=== PATIENT | female | born 1945 | race Caucasian/White ===

== ENCOUNTER 2021-11-03 14:36 | Emergency (ER) | payer MEDICARE ==
[~2021-11-03] VITALS: Ht 154.9 cm; Wt 59.0 kg
[2021-11-03] MEDS ORDERED: 0.9%NACL 1000ML 1,000 ML IV SCH (16:30)
[2021-11-03] MEDS ORDERED: [UNRECOGNIZED DRUG - OTHER] IV ONE (16:30)
[2021-11-03 16:42] LABS: BASOPHILS % (AUTO) 0.5 % (0.0-5.0); EOSINOPHILS % (AUTO) 0.8 % (0.0-8.0); HEMATOCRIT 37.1 % (36-48); LYMPHOCYTES % (AUTO) 31.8 % (21.0-51.0); MEAN CORPUSCULAR HEMOGLOBIN 31.9 pg (27.0-33.0); MEAN CORPUSCULAR HGB CONC 32.6 g/dL (32.0-36.0); MEAN CORPUSCULAR VOLUME 97.9 fL (79-99); MONOCYTES % (AUTO) 12.4 % (3.0-13.0); NEUTROPHILS % (AUTO) 54.2 % (40.0-77.0); PLATELET COUNT (AUTO) 314 K/uL (130-400); RED BLOOD CELL COUNT(AUTO) 3.79 MIL/uL (4.00-5.50); RED CELL DISTRIBUTION WIDTH 12.2 % (11.0-15.5); WHITE BLOOD COUNT (AUTO) 7.4 K/uL (4.8-10.8)
[2021-11-03 16:52] LABS: CARBON DIOXIDE 30 mmol/L (21-32); CHLORIDE 97 mmol/L (101-111); CREATININE 0.8 mg/dL (0.5-1.5); GLOMERULAR FILTR. RATE CALC 74 mL/min (>60); GLUCOSE,RANDOM 92 mg/dL (70-105); POTASSIUM 3.4 mmol/L (3.5-5.1); SODIUM SERUM 134 mmol/L (136-145); UREA NITROGEN, BLOOD 18 mg/dL (7-18)
[2021-11-03 16:57] LABS: ALANINE AMINOTRANSFERASE 19 U/L (12-78); ALBUMIN 3.8 g/dL (3.5-5.0); ASPARTATE AMINOTRANSFERASE 23 U/L (10-37); BILIRUBIN,TOTAL 0.3 mg/dL (0.2-1.0); TOTAL PROTEIN, SERUM 7.9 g/dL (6.0-8.3)
[2021-11-03 17:00] LABS: CRP QUANTITATIVE < 2.00 mg/L (0.00-9.0)
[2021-11-03] MEDS ORDERED: ACETAMINOPHEN 500 MG TABLET PO ONE (17:00)
[2021-11-03] MEDS ORDERED: KETOROLAC 30MG VIAL (30MG/ML) IV ONE (17:00)
[2021-11-03 17:43] LABS: APPEARANCE,URINE Clear (CLEAR); BILIRUBIN,URINE Negative (NEGATIVE); COLOR,URINE Yellow (YELLOW); GLUCOSE, URINE (UA) Negative (NEGATIVE); KETONES,URINE Negative (NEGATIVE); LEUKOCYTE ESTERASE ,URINE Negative (NEGATIVE); NITRATE,URINE Negative (NEGATIVE); OCCULT BLOOD,URINE Negative (NEGATIVE); PROTEIN,URINE Negative (NEGATIVE); UROBILINOGEN,URINE 0.2 mg/dL (0.2-1.0)
[2021-11-03] MEDS ORDERED: METH4TAB15 PO (17:48)
[2021-11-03] MEDS ORDERED: AZIT500T4 PO (17:48)
[2021-11-03 17:49] VITALS: BP 164/78
[2021-11-03] MEDS ORDERED: CETI10TA57 PO (17:49)
[2021-11-03] MEDS ORDERED: ETHA400T33 PO (17:49)
[2021-11-03] MEDS ORDERED: XALA2.5OS OD (17:49)
[2021-11-03] MEDS ORDERED: [UNRECOGNIZED DRUG - CODE] IV (17:49)
[2021-11-03] MEDS ORDERED: ATOR10 PO (17:49)
[2021-11-03] MEDS ORDERED: LACT10PA5 PO (18:03)
[2021-11-03] MEDS ORDERED: ACETAMINOPHEN 500 MG TABLET ONE ×2 (18:17→18:42)
== END 2021-11-03 19:04 | disposition home or self-care (01) ==
LOC: EDH 14:36
DX: K57.90 Diverticulosis of intestine, part unspecified, without perforation or abscess without bleeding (principal); K59.00 Constipation, unspecified; R33.9 Retention of urine, unspecified; Z88.2 Allergy status to sulfonamides; Z79.899 Other long term (current) drug therapy
CPT/HCPCS: 36415; 51702; 74176; 80053; 81003; 85025; 86140; 96361; 96374; 99284; J1885; J7030

== ENCOUNTER 2021-11-14 14:26 | Emergency (ER) | payer MEDICARE ==
[~2021-11-14] VITALS: Ht 154.9 cm; Wt 50.8 kg
[~2021-11-14 14:26] MED LIST: ATOR10 PO; AZIT500T4 PO; CEPH500B PO; CETI10TA57 PO; ETHA400T33 PO; LACT10PA5 PO; METH4TAB15 PO; XALA2.5OS OD; [UNRECOGNIZED DRUG - CODE] IV
[2021-11-14 15:22] LABS: BASOPHILS % (AUTO) 0.3 % (0.0-5.0); EOSINOPHILS % (AUTO) 0.5 % (0.0-8.0); HEMATOCRIT 37.2 % (36-48); LYMPHOCYTES % (AUTO) 17.3 % (21.0-51.0); MEAN CORPUSCULAR HEMOGLOBIN 30.8 pg (27.0-33.0); MEAN CORPUSCULAR HGB CONC 32.5 g/dL (32.0-36.0); MEAN CORPUSCULAR VOLUME 94.7 fL (79-99); MONOCYTES % (AUTO) 10.4 % (3.0-13.0); NEUTROPHILS % (AUTO) 71.3 % (40.0-77.0); PLATELET COUNT (AUTO) 350 K/uL (130-400); RED BLOOD CELL COUNT(AUTO) 3.93 MIL/uL (4.00-5.50); RED CELL DISTRIBUTION WIDTH 12.3 % (11.0-15.5); WHITE BLOOD COUNT (AUTO) 8.7 K/uL (4.8-10.8)
[2021-11-14 15:38] LABS: CREATININE 0.7 mg/dL (0.5-1.5); POTASSIUM 4.5 mmol/L (3.5-5.1)
[2021-11-14 15:42] LABS: ALBUMIN 3.9 g/dL (3.5-5.0); BILIRUBIN,TOTAL 0.3 mg/dL (0.2-1.0); TOTAL PROTEIN, SERUM 7.9 g/dL (6.0-8.3)
[2021-11-14 18:10] LABS: APPEARANCE,URINE CLOUDY (CLEAR); BILIRUBIN,URINE NEGATIVE (NEGATIVE); COLOR,URINE YELLOW (YELLOW); GLUCOSE, URINE (UA) NEGATIVE (NEGATIVE); KETONES,URINE 15 mg/dL (NEGATIVE); LEUKOCYTE ESTERASE ,URINE TRACE (NEGATIVE); NITRATE,URINE NEGATIVE (NEGATIVE); OCCULT BLOOD,URINE MODERATE (NEGATIVE); PROTEIN,URINE 30 mg/dL (NEGATIVE); UROBILINOGEN,URINE 0.2 mg/dL (0.2-1.0)
[2021-11-14 18:30] LABS: RBC,URINE 26-50 /HPF (0-1)
[2021-11-14 18:31] LABS: BACTERIA,URINE Rare /HPF (None Seen); SQUAMOUS EPITHELIAL CELL,UR Rare /HPF (0-2)
[2021-11-14 18:39] VITALS: BP 136/68
[2021-11-14] MEDS ORDERED: LIDOCAINE HCL-MPF 1% 2ML VIAL ONE (18:56)
[2021-11-14] MEDS ORDERED: TRAMADOL HCL 50 MG TABLET ONE (18:57)
[2021-11-14] MEDS ORDERED: TRAMADOL HCL 50 MG TABLET PO ONE (19:00)
[2021-11-14] MEDS ORDERED: CEFTRIAXONE 1G VIAL IM ONE (19:00)
[2021-11-14] MEDS ORDERED: TRAM50TA4 PO (19:06)
[2021-11-14] MEDS ORDERED: CEFP200T14 PO (19:06)
== END 2021-11-14 19:35 | disposition home or self-care (01) ==
LOC: EDH 14:26
DX: N39.0 Urinary tract infection, site not specified (principal); E78.00 Pure hypercholesterolemia, unspecified; Z88.2 Allergy status to sulfonamides; Z79.52 Long term (current) use of systemic steroids; Z87.442 Personal history of urinary calculi
CPT/HCPCS: 36415; 80053; 81001; 85025; 87088; 96372; 99284; J0696; J3490